=== PATIENT | male | born 1985 | race Caucasian/White ===

== ENCOUNTER 2017-01-22 13:26 | Emergency (ER) | payer SELFPAY ==
--- NOTE | ~2017-01-22 | CR20 ---
[facility] A Service of [facility] & [facility] RADIOLOGY TEXT RESULTS PATIENT: JENNIFER LUCERO LOCATION: SED : 81 UNIT #: [id number] AGE: [address]: Mona Chisholm APRN SEX: M ORDER DR: [id number] [place] [id number] E MR#: [id number] Acc #: [id number] NAME: JENNIFER LUCERO : 1985 SEX: M STUDY DATE/TIME: 01/22/2017 13:24 UNIT: SED ROOM: STUDY DESCRIPTION: CR Ankle Min 3 Views Lt Attending Physician: Mona Chisholm A.P.R.N. Ordering Physician: Mona Child A.P.R.N. Primary Care Physician: No Primary Care Physician MEDICAL IMAGING REPORT This report is preliminary unless electronic signature is present. EXAM Left ankle 01/22/2017 [facility]. HISTORY 31-year-old male rolled ankle playing basketball. Pain and swelling. Injury yesterday. FINDINGS 3 views of the left ankle demonstrate rather pronounced lateral soft tissue swelling. There is no visible fracture. Ankle mortise is preserved. IMPRESSION Pronounced lateral soft tissue swelling with no associated fracture. Ankle mortise is preserved. Dictated by... Cecilio Mixon M.D. THIS IS AN ELECTRONICALLY VERIFIED REPORT Cecilio Mixon M.D. at 01/22/2017 3:13 PM RAFFI/camryn TD: 01/22/2017 14:09 JOB #: [id number] MEDICAL IMAGING REPORT Page 1 of 1
--- NOTE | ~2017-01-22 | CR126 ---
[facility]. [facility] A Service of [facility] & [facility] RADIOLOGY TEXT RESULTS PATIENT: JENNIFER LUCERO LOCATION: SED : 83 UNIT #: [id number] AGE: [address]: Mona Chisholm APRN SEX: M ORDER DR: [id number] [place] [id number] MR#: [id number] Acc #: [id number] NAME: JENNIFER LUCERO : 1985 SEX: M STUDY DATE/TIME: 01/22/2017 13:24 UNIT: SED ROOM: STUDY DESCRIPTION: CR Foot Complete Min 3 View Lt Attending Physician: Mona Chisholm A.P.R.N. Ordering Physician: Mona Child A.P.R.N. Primary Care Physician: No Primary Care Physician MEDICAL IMAGING REPORT This report is preliminary unless electronic signature is present. EXAM Left foot 3 views 01/22/2017 1324 hours. HISTORY Patient rolled foot and ankle playing basketball yesterday. Foot and ankle pain since yesterday. COMPARISON Ankle film 01/22/2017 FINDINGS AP, lateral and oblique views demonstrate no fracture or dislocation. IMPRESSION Negative left foot. Dictated by... Elen Phillips M.D. THIS IS AN ELECTRONICALLY VERIFIED REPORT Elen Phillips M.D. at 01/22/2017 2:31 PM KEY/camryn TD: 01/22/2017 14:14 JOB #: [id number] MEDICAL IMAGING REPORT Page 1 of 1
== END 2017-01-22 14:14 | disposition home or self-care (01) ==
LOC: SED 13:26
DX: S93.402A Sprain of unspecified ligament of left ankle, initial encounter (principal); F17.210 Nicotine dependence, cigarettes, uncomplicated; X50.1XXA Overexertion from prolonged static or awkward postures, initial encounter; Y92.009 Unspecified place in unspecified non-institutional (private) residence as the place of occurrence of the external cause
CPT/HCPCS: 29515; 29540; 73610; 73630; 99283